=== PATIENT | female | born 1960 ===

== ENCOUNTER 2017-07-01 09:56 | Emergency (ER) | payer SELFPAY ==
--- NOTE | 2017-07-01 10:50 | C.PDOC ---
History Of Present Illness 57 year old female, with PMHx of asthma, presents to ED for evaluation of shortness of breath that started today. Pt also complaints of cough, congestion , and generalized weakness for the last 4 days. Pt admits to feeling anxious, notes that she doesn't normally take any medication for anxiety. Pt has history of HIV, takes her medication daily but has not followed up in over a year. Also notes that she has h/o thyroid mass for 1+ years ago with imagining. Denies chest pain, fever, leg/calf pain, ankle/leg swelling, abdominal pain, n/v or any other associated symptoms at this time. Time Seen by Provider: 07/01/17 10:12 Chief Complaint (Nursing): Shortness Of Breath History Per: Patient History/Exam Limitations: no limitations Onset/Duration Of Symptoms: Days Current Symptoms Are (Timing): Still Present Exacerbating Factor(s): Coughing Current Respiratory Medications: See Home Med List Associated Symptoms: denies: Fever, Chills, Sweating, Chest Pain, Bloody Cough, Heart Racing, Leg/Calf Pain, Ankle/Leg Swelling, Dizziness, Light-headedness, Anxiety, Tingling In Hands Or Face, Musle Spasms In Hands Or Feet Additional History Per: Patient Past Medical History Reviewed: Historical Data, Nursing Documentation, Vital Signs Vital Signs: Last Vital Signs Temp 97.6 F 07/01/17 15:25 Pulse 89 07/01/17 15:25 Resp 18 07/01/17 15:25 BP 123/81 07/01/17 15:25 Pulse Ox 100 07/04/17 07:40 - Medical History PMH: Asthma, HIV Family History: States: Unknown Family Hx - Social History Hx Alcohol Use: No Hx Substance Use: No - Immunization History Hx Tetanus Toxoid Vaccination: No Hx Influenza Vaccination: No Hx Pneumococcal Vaccination: No Review Of Systems Except As Marked, All Systems Reviewed And Found Negative. Constitutional: Positive for: Weakness. Negative for: Fever, Chills ENT: Positive for: Nose Congestion. Negative for: Ear Pain, Throat Pain Cardiovascular: Negative for: Chest Pain, Palpitations, Edema, Light Headedness Respiratory: Positive for: Cough, Shortness of Breath. Negative for: Hemoptysis , Sputum Gastrointestinal: Negative for: Nausea, Vomiting, Abdominal Pain Neurological: Negative for: Headache, Dizziness Physical Exam - Physical Exam Appears: Non-toxic, Other (anxious) Skin: Normal Color, Warm, Dry Head: Atraumatic, Normacephalic Eye(s): bilateral: Normal Inspection, EOMI Ear(s): Bilateral: Normal Nose: Normal Oral Mucosa: Moist Throat: Normal, No Erythema, No Exudate Neck: Normal ROM, Supple, Other (4cm of non-tender mobile mass to left side and anterior aspect of neck) Chest: Symmetrical Cardiovascular: Rhythm Regular Respiratory: Decreased Breath Sounds, Other (tachypneic) Gastrointestinal/Abdominal: Soft, No Tenderness Extremity: Normal ROM, No Pedal Edema Neurological/Psych: Oriented x3, Normal Speech ED Course And Treatment - Laboratory Results Result Diagrams: 07/01/17 11:09 07/01/17 11:09 ECG: Interpreted By Me, Viewed By Me ECG Rhythm: Sinus Rhythm ECG Interpretation: No Acute Changes Rate From EC (bpm) O2 Sat by Pulse Oximetry: 100 (RA) Pulse Ox Interpretation: Normal - CT Scan/US Angio chest CT Other Rad Studies (CT/US): Read By Radiologist, Radiology Report Reviewed CT/US Interpretation: Accession No. : [id number]. Patient Name / ID : DYLAN RIOS / [id number]. Exam Date : 07/01/2017 13:05:26 ( Approved ). Study Comment : Sex / Age : F / 57Y. Creator : Shannan Ramey. Dictator : Shay Ledezma MD. Scissors Grinder : Traveling Secretary : Shay Ledezma MD. Approver2 : Report Date : 07/01/2017 13:18:29. My Comment : . PROCEDURE: CT Chest with contrast (Pulmonary Angiogram). HISTORY: SOB. COMPARISON: None available. TECHNIQUE: Axial computed tomography images were obtained of the chest in the pulmonary arterial phase of enhancement. Coronal and sagittal reformatted images were created and reviewed. Intravenous contrast dose: Visipaque 320, 100 cc. Radiation dose: Total exam DLP = 457.90 mGy-cm. This CT exam was performed using one or more of the following dose reduction techniques: Automated exposure control, adjustment of the mA and/or kV according to patient size, and/or use of iterative reconstruction technique. FINDINGS: PULMONARY ARTERIES: Unremarkable. No pulmonary embolism. AORTA: No acute findings. No thoracic aortic aneurysm. LUNGS: Unremarkable. No nodule , mass or pulmonary consolidation. PLEURAL SPACES: Unremarkable. No effusion or pneuomothorax. HEART: Mild cardiomegaly is noted. No pulmonary vascular derangement evident grossly. LYMPH NODES: No significant lymphadenopathy. BONES, CHEST WALL: Unremarkable. No fracture or destructive lesion. OTHER FINDINGS: Incidental cholelithiasis identified within a mildly distended gallbladder. Further, at the thoracic inlet, there is a hypodense poorly enhancing mass with limited associated calcification in the base the neck into the thoracic inlet/ substernal space measuring 4.5 x 4.0 x 3.9 cm ( anteroposterior by transverse by superoinferior dimensions), not completely captured in this exam and may be larger than the study suggests. Consider possible goiter or other left lobe thyroid mass. IMPRESSION: 1. No CT evidence to suggest pulmonary embolus bilaterally. No acute infiltrate pleural or pericardial effusion. No pneumothorax. 2. Incidental note is made of a large thoracic inlet lesion in the plane of the left thyroid lobe inferiorly, measuring at least 4.5 cm greatest dimension probably representing a thyroid mass, even a goiter. Further clinical correlation and imaging workup is recommended if not already performed. 3. Incidental limited cholelithiasis. Progress Note: Blood work, UA, EKG, CXR ordered and reviewed. Pt was given Xanax. On re-evaluation, patient is resting comfortably with no wheezing, chest pain, or retractions. Oxygen saturation remains stable, breath sounds have improved. Patient is alert and oriented x 3. Patient was advised to follow up with physician in 1-2 days. Case discussed and pt evaluated By Dr López, agreed upon plan and discharge. Disposition - Disposition Disposition: HOME/ ROUTINE Disposition Time: 15:26 Condition: STABLE Additional Instructions: Vaya a charlton mdico o la clnica en 1-3 zaldivar sin falta, para mas evaluacin. Loyall los medicamentos daniel indicado. Volver a la conrado de emergencia en cualquier momento si los sntomas persisten o empeoran. Prescriptions: Acetaminophen [Tylenol 325mg tab] 650 mg PO Q4 PRN #20 tab PRN Reason: Pain, Mild (1-3) Sulfamethoxazole/Trimethoprim [Bactrim DS 800 mg-160 mg] 1 tab PO BID #14 tab Instructions: Upper Respiratory Infection (ED) Forms: [employer] (Gabonese) Print Language: SYRIAC - Clinical Impression Clinical Impression: URI (upper respiratory infection) - PA / KETTLE COORDINATOR / Resident Statement MD/DO has reviewed & agrees with the documentation as recorded. - Scribe Statement The provider has reviewed the documentation as recorded by the Scribe Jose Cardenas All medical record entries made by the Lawsonibnadir were at my direction and personally dictated by me. I have reviewed the chart and agree that the record accurately reflects my personal performance of the history, physical exam, medical decision making, and the department course for this patient. I have also personally directed, reviewed, and agree with the discharge instructions and disposition.
[2017-07-01 11:17] LABS: BASO % 0.9 % (0.0-2.0); EOS # 0.1 K/uL (0.0-0.7); EOS % 1.6 % (0.0-4.0); HEMATOCRIT 38.4 % (34.0-47.0); LYMPH # 1.6 K/uL (1.0-4.3); LYMPH % 48.1 % (20.0-40.0); MEAN CELL VOLUME 103.1 fL (81.0-99.0); MEAN CORPUSCULAR HEMOGLOBIN 35.5 pg (27.0-31.0); MEAN CORPUSCULAR HGB CONC 34.5 g/dL (33.0-37.0); MEAN PLATELET VOLUME 8.3 fL (7.2-11.7); MONO # 0.3 K/uL (0.0-0.8); MONO % 9.6 % (0.0-10.0); RED CELL DISTRIBUTION WIDTH 13.7 % (11.5-14.5); WHITE BLOOD COUNT 3.4 K/uL (4.8-10.8)
[2017-07-01 11:20] LABS: RBC URINE 1 /hpf (0-3); URINE BILIRUBIN NEGATIVE (NEGATIVE); URINE BLOOD NEGATIVE (NEGATIVE); URINE COLOR Straw (YELLOW); URINE GLUCOSE (UA) NORMAL (Normal); URINE KETONE NEGATIVE (NEGATIVE); URINE LEUKOCYTE ESTERASE NEG Leu/uL (Negative); URINE PROTEIN NEGATIVE (NEGATIVE); URINE UROBILINOGEN NORMAL mg/dL (0.2-1.0); WBC URINE 1 /hpf (0-5)
[2017-07-01 11:41] LABS: ALKALINE PHOSPHATASE 160 U/L (38-126); ALT/SGPT 21 U/L (9-52); AST/SGOT 26 U/L (14-36); BILIRUBIN,TOTAL 0.4 mg/dL (0.2-1.3); BLOOD UREA NITROGEN 8 mg/dL (7-17); CALCIUM 8.6 mg/dl (8.6-10.4); CARBON DIOXIDE 21 mmol/L (22-30); CHLORIDE 107 mmol/L (98-107); GFR AFRICAN-AMERICAN > 60; GLUCOSE,RANDOM 121 mg/dL (65-105); POTASSIUM 3.4 mmol/L (3.6-5.2); SODIUM 138 mmol/L (132-148)
[2017-07-01 11:58] LABS: FT3 6.58 pg/mL (2.77-5.27)
[2017-07-01 12:11] LABS: THYROID STIMULATING HORMONE 2.91 mIU/L (0.46-4.68)
--- NOTE | 2017-07-01 12:29 | RAD ---
HISTORY: SOB COMPARISON: None available. TECHNIQUE: Chest, one view. FINDINGS: Examination limited by habitus. LUNGS: Mild pulmonary venous congestion. No focal consolidation. Please note that chest x-ray has limited sensitivity for the detection of pulmonary masses. PLEURA: No significant pleural effusion identified. No definite pneumothorax . CARDIOVASCULAR: Cardiomegaly. OSSEOUS STRUCTURES: No acute osseous abnormality identified. VISUALIZED UPPER ABDOMEN: Unremarkable. OTHER FINDINGS: None. IMPRESSION: Mild pulmonary venous congestion. Cardiomegaly.
[2017-07-01] MEDS ORDERED: Iodixanol 320 MG/ML 100 ML BOTTLE IV ONE (12:54)
[2017-07-01 13:17] VITALS: RESP 18
--- NOTE | 2017-07-01 14:12 | CT ---
PROCEDURE: CT Chest with contrast (Pulmonary Angiogram) HISTORY: SOB COMPARISON: None available. TECHNIQUE: Axial computed tomography images were obtained of the chest in the pulmonary arterial phase of enhancement. Coronal and sagittal reformatted images were created and reviewed. Intravenous contrast dose: Visipaque 320, 100 cc. Radiation dose: Total exam DLP = 457.90 mGy-cm. This CT exam was performed using one or more of the following dose reduction techniques: Automated exposure control, adjustment of the mA and/or kV according to patient size, and/or use of iterative reconstruction technique. FINDINGS: PULMONARY ARTERIES: Unremarkable. No pulmonary embolism. AORTA: No acute findings. No thoracic aortic aneurysm. LUNGS: Unremarkable. No nodule, mass or pulmonary consolidation. PLEURAL SPACES: Unremarkable. No effusion or pneuomothorax. HEART: Mild cardiomegaly is noted. No pulmonary vascular derangement evident grossly. LYMPH NODES: No significant lymphadenopathy. BONES, CHEST WALL: Unremarkable. No fracture or destructive lesion OTHER FINDINGS: Incidental cholelithiasis identified within a mildly distended gallbladder. Further, at the thoracic inlet, there is a hypodense poorly enhancing mass with limited associated calcification in the base the neck into the thoracic inlet/ substernal space measuring 4.5 x 4.0 x 3.9 cm (anteroposterior by transverse by superoinferior dimensions), not completely captured in this exam and may be larger than the study suggests. Consider possible goiter or other left lobe thyroid mass. IMPRESSION: 1. No CT evidence to suggest pulmonary embolus bilaterally. No acute infiltrate pleural or pericardial effusion. No pneumothorax. 2. Incidental note is made of a large thoracic inlet lesion in the plane of the left thyroid lobe inferiorly, measuring at least 4.5 cm greatest dimension probably representing a thyroid mass, even a goiter. Further clinical correlation and imaging workup is recommended if not already performed. 3. Incidental limited cholelithiasis.
[2017-07-01] MEDS ORDERED: Sodium Chloride 0.9% 1,000 ML IV ONE (14:27)
[2017-07-01 15:31] VITALS: O2SAT 100
[2017-07-01 15:33] VITALS: BP 123/81; PULSE 89; TEMP 97.6
--- NOTE | 2017-07-03 12:52 | CARD ---
APPROVED REPORT EKG Measurement Heart [id number] <Conclusion> Normal sinus rhythm Normal ECG
== END 2017-07-01 15:45 | disposition home or self-care (01) ==
LOC: C.ER 09:56
DX: J06.9 Acute upper respiratory infection, unspecified (principal); Z21 Asymptomatic human immunodeficiency virus [HIV] infection status
CPT/HCPCS: 71010; 71275; 80053; 81001; 83880; 84439; 84443; 84481; 84484; 85025; 85378; 85610; 85730; 87804; 93005; 96360; 99285; J7040; Q9967